=== PATIENT | female | born 1975 | race Hispanic/Latino ===

== ENCOUNTER 2024-10-12 05:29 | Emergency (ER) | payer SELFPAY ==
[~2024-10-12] VITALS: Ht 162.6 cm; Wt 63.0 kg
[2024-10-12 05:41] VITALS: BP 151/109
[2024-10-12] MEDS ORDERED: BUPROPION HCL150 MG PO (05:56)
[2024-10-12] MEDS ORDERED: ESCITALOPRAM OXA5 MG PO (05:56)
[2024-10-12 06:01] VITALS: BP 161/104
[2024-10-12] MEDS ORDERED: SODIUM CHLORIDE 0.9% 1,000 ML IV ONE (06:20)
[2024-10-12] MEDS ORDERED: ACTIVATED CHARCOAL 25 GM LIQ PO ONE (06:20)
[2024-10-12 06:24] LABS: BASO% 0.8 % (0-3); HEMATOCRIT 40.5 % (37.0-47.0); HEMOGLOBIN 13.4 g/dl (12.0-16.0); IMMATURE GRANULOCYTES 0.4 % (0.0-5.0); LYMPH% 23.8 % (15-41); MEAN CELL VOLUME 94.8 fL CALC (80.0-100.0); MEAN CORPUSCULAR HGB 31.4 pG CALC (26.0-32.0); MEAN CORPUSCULAR HGB CONC 33.1 g/dL CAL (32.0-36.0); MONO% 6.6 % (2-13); NEUT# 5.04 thou/uL (2.00-7.15); NEUT% 68.4 % (42-76); RED BLOOD COUNT 4.27 mill/uL (4.20-5.60); RED CELL DISTRI WIDTH 12.2 % (11.5-15.5)
[2024-10-12 06:26] LABS: ALBUMIN 4.6 g/dL (3.2-5.0); ALKALINE PHOSPHATASE 24 u/l (38-126); ANION GAP 17 (6-22 (CALC)); BILIRUBIN, TOTAL 0.3 mg/dL (0.02-1.3); BUN 10 mg/dL (7-17); BUN/CREATININE RATIO 13 (12-20 (CALC)); CARBON DIOXIDE 23 mmol/l (22-30); CHLORIDE 107 mmol/l (95-108); CPK 148 u/l (30-135); CREATININE 0.8 mg/dL (0.5-1.0); ESTIMATED GFR 90 ML/MIN (>=90 (CALC)); ETHYL ALCOHOL 63 mg/dl (0-30); LIPASE 49 u/l (23-300); MAGNESIUM 2.1 mg/dL (1.6-2.3); POTASSIUM 3.6 mmol/l (3.5-5.1); SGOT/AST 32 u/l (14-36); SODIUM 143 mmol/l (137-146); TOTAL PROTEIN 7.6 g/dL (6.3-8.2)
[2024-10-12 07:08] LABS: URINE BILIRUBIN - DIPSTICK Negative (NEGATIVE); URINE BLOOD DIPSTICK Moderate (NEGATIVE); URINE GLUCOSE - DIPSTICK Negative (NEGATIVE); URINE KETONE Negative (NEGATIVE); URINE LEUK ESTERASE Negative (NEGATIVE); URINE NITRITE - DIPSTICK Negative (Negative); URINE PH 6.5 (4.5-8.0); URINE PROTEIN - DIPSTICK Negative (NEG-TRACE); URINE SPECIFIC GRAVITY 1.015; URINE UROBILINOGEN - DIPSTICK 0.2 E.U./dL (0.2)
[2024-10-12 07:13] LABS: URINE COLOR Yellow
[2024-10-12 07:14] LABS: URINE SQUAMOUS EPITHELIAL CELL FEW EPI/hpf (0-FEW); URINE WBC 0-2 WBC/hpf (0-5)
[2024-10-12] MEDS ORDERED: ONDANSETRON HCl 4 MG/2 ML SDV IV ONE ×2 (08:05→11:50)
[2024-10-12 08:21] VITALS: BP 156/105
[2024-10-12 08:30] VITALS: BP 140/97
[2024-10-12] MEDS ORDERED: LOPERAMIDE HCL 2 MG CAP PO ONE (09:05)
[2024-10-12 13:04] VITALS: BP 142/72
== END 2024-10-12 13:07 | DRG 918 ==
LOC: ED 05:29
PROVIDERS: Internal Medicine
DX: T39.392A Poisoning by other nonsteroidal anti-inflammatory drugs [NSAID], intentional self-harm, initial encounter (principal); T43.502A Poisoning by unspecified antipsychotics and neuroleptics, intentional self-harm, initial encounter; T47.4X2A Poisoning by other laxatives, intentional self-harm, initial encounter; Z20.822 Contact with and (suspected) exposure to COVID-19; Z63.4 Disappearance and death of family member; Z63.5 Disruption of family by separation and divorce